=== PATIENT | male | born 1960 | race Caucasian/White ===

== ENCOUNTER 2021-05-04 01:14 | Emergency (ER) | payer OTHER ==
[2021-05-04 01:39] LABS: BASOPHIL 0.2 % (0-2); EOSINOPHIL 0 % (0-5); HCT 40.2 % (42.0-52.0); HGB 13.7 g/dl (13.2-18.0); LYMPHOCYTE 4.9 % (15-48); MCH 33.7 pg (25.0-31.0); MCHC 34.1 g/dL (32.0-36.0); MONOCYTE 9.5 % (0-12); NEUTROPHIL 85.2 % (41-80); NRBC 0; PLT 145 K/uL (150-400); RBC 4.06 M/uL (4.70-6.00); RDW 12.6 % (11.5-14.0); WBC 8.1 K/uL (4.0-10.5)
[2021-05-04 01:58] LABS: LACTIC ACID 2.5 mmol/L (0.4-1.9)
[2021-05-04 02:03] LABS: ALBUMIN 4.4 g/dL (3.4-5.0); BILIRUBIN - TOTAL 1.2 mg/dL (0.2-1.0); BUN/CREAT RATIO (CALC) 22.9 RATIO; CREATININE 1.05 mg/dL (0.67-1.17); GLOBULIN (CALCULATION) 5.2 g/dL; POTASSIUM 3.7 mmol/L (3.5-5.1); TOTAL PROTEIN 9.6 g/dL (6.4-8.2)
[2021-05-04 03:21] LABS: BILIRUBIN 2+ mg/dL (NEGATIVE); BLOOD 2+ Ery/uL (NEGATIVE); CLARITY CLEAR (CLEAR); COLOR YELLOW (YELLOW); GLUCOSE (U) 3+ mg/dL (NORMAL); LEUKOCYTES NEGATIVE Leu/uL (NEGATIVE); NITRITE NEGATIVE (NEGATIVE); PROTEIN 2+ mg/dL (NEGATIVE); SPECIFIC GRAVITY 1.015 (1.001-1.030); UROBILINOGEN 0.2 mg/dL (0.2-1.0)
[2021-05-04 03:27] LABS: BACTERIA TRACE; URINARY WBC RARE
[2021-05-04] MEDS ORDERED: ONDANSETRON ODT4 MG SL (04:45)
[2021-05-04] MEDS ORDERED: BENTYL10 MG PO (04:45)
== END 2021-05-04 05:00 | disposition home or self-care (01) ==
LOC: FER 01:14
PROVIDERS: Emergency Medicine Emergency Medical Services
DX: R11.2 Nausea with vomiting, unspecified (principal); R19.7 Diarrhea, unspecified; E11.9 Type 2 diabetes mellitus without complications; I10 Essential (primary) hypertension; Z79.84 Long term (current) use of oral hypoglycemic drugs
CPT/HCPCS: 36415; 74018; 80053; 81001; 83605; 83690; 84145; 85025; J0500; J2405; J7120